=== PATIENT | female | born 1975 ===

== ENCOUNTER 2019-11-27 19:30 | Outpatient (CLI) | payer BC | END 2019-11-27 19:31 | disposition home or self-care (01) | LOC: SLEEPLAB 19:30 | PROVIDERS: ATTEND Family Medicine | DX: G47.9 Sleep disorder, unspecified (principal); G47.33 Obstructive sleep apnea (adult) (pediatric); R06.83 Snoring; R53.83 Other fatigue; G47.00 Insomnia, unspecified; G47.10 Hypersomnia, unspecified; E66.9 Obesity, unspecified; Z68.42 Body mass index [BMI] 45.0-49.9, adult | CPT/HCPCS: 95811 ==